=== PATIENT | female | born 1995 | race Caucasian/White ===

== ENCOUNTER 2020-10-30 20:00 | Emergency (ER) | payer OTHER ==
[~2020-10-30] VITALS: Ht 167.6 cm; Wt 81.8 kg
[2020-10-30] MEDS ORDERED: LORazepam 2 MG TABLET PO ONE (20:30)
[2020-10-30 20:39] LABS: APPEARANCE,URINE CLEAR (CLEAR); BILIRUBIN,URINE NEGATIVE (NEGATIVE); GLUCOSE, URINE (UA) NEGATIVE (NEGATIVE); KETONES,URINE 15 mg/dL (NEGATIVE); LEUKOCYTE ESTERASE ,URINE NEGATIVE (NEGATIVE); NITRATE,URINE NEGATIVE (NEGATIVE); OCCULT BLOOD,URINE NEGATIVE (NEGATIVE); PROTEIN,URINE NEGATIVE (NEGATIVE); UROBILINOGEN,URINE 0.2 mg/dL (<=1.0)
[2020-10-30 20:41] LABS: AMPHET/METH SCREEN,URINE NEGATIVE (NEGATIVE); BARBITURATE SCREEN, URINE NEGATIVE (NEGATIVE); BENZODIAZEPINES SCREEN,URINE NEGATIVE (NEGATIVE); CANNABINOID SCREEN,URINE POSITIVE (NEGATIVE); COCAINE SCREEN,URINE NEGATIVE (NEGATIVE); METHADONE SCREEN, URINE NEGATIVE (NEGATIVE); OPIATE SCREEN,URINE NEGATIVE (NEGATIVE)
[2020-10-30 20:42] LABS: BASOPHILS % (AUTO) 0.5 % (0.0-2.0); HEMATOCRIT 39.2 % (36-46); HEMOGLOBIN 13.4 g/dL (12.0-16.0); LYMPHOCYTES # (AUTO) 2.1 K/uL (1.0-4.8); LYMPHOCYTES % (AUTO) 21.2 % (22.0-44.0); MEAN CORPUSCULAR HEMOGLOBIN 31.5 pg (26.0-34.0); MEAN CORPUSCULAR HGB CONC 34.1 G/dL (31.0-37.0); MEAN CORPUSCULAR VOLUME 92 fL (80-100); MONOCYTES # (AUTO) 0.8 K/uL (0.1-1.0); MONOCYTES % (AUTO) 7.9 % (2.0-9.0); NEUTROPHILS # (AUTO) 6.7 K/uL (1.8-7.7); NEUTROPHILS % (AUTO) 68.4 % (40.0-70.0); PLATELET COUNT (AUTO) 415 K/uL (150-450); RED BLOOD CELL COUNT(AUTO) 4.25 MIL/uL (4.00-5.20); RED CELL DISTRIBUTION WIDTH 11.7 % (11.5-14.5)
[2020-10-30 20:42] LABS: PHENCYCLIDINE SCREEN,URINE NEGATIVE (NEGATIVE)
[2020-10-30 20:44] LABS: COVID AG,FIA SOURCE NASOPHARYNGEAL
[2020-10-30 20:45] LABS: BACTERIA,URINE Few /HPF (None Seen); RBC,URINE 0-2 /HPF (0-2); SQUAMOUS EPITHELIAL CELL,UR Moderate /LPF (None Seen)
[2020-10-30] MEDS ORDERED: CEPHALEXIN MONOHYDRATE 500 MG CAPSULE PO ONE (20:45)
[2020-10-30 20:51] LABS: ANION GAP 4 mmol/L (8-16); CALCIUM, TOTAL 8.9 mg/dL (8.8-10.5); CARBON DIOXIDE 29 mmol/L (22-29); CHLORIDE 107 mmol/L (98-107); GLOMERULAR FILTR. RATE CALC > 60 mL/min (>60); GLUCOSE,RANDOM 90 mg/dL (70-110); POTASSIUM 3.4 mmol/L (3.5-5.1); SODIUM SERUM 140 mmol/L (136-145); UREA NITROGEN, BLOOD 11 mg/dL (7-18)
[2020-10-30 21:04] LABS: ALANINE AMINOTRANSFERASE 32 U/L (12-78); ALBUMIN 3.9 g/dL (3.4-5.0); ALKALINE PHOSPHATASE 62 U/L (46-116); ASPARTATE AMINOTRANSFERASE 15 U/L (15-37); BILIRUBIN,TOTAL 0.6 mg/dL (0.1-1.0); HCG,QUANTITATIVE < 1 mIU/mL (0-6); TOTAL PROTEIN, SERUM 7.2 g/dL (6.4-8.2)
[2020-10-30] MEDS ORDERED: POTASSIUM CHLORIDE 10% 40 MEQ/30 ML LIQUID UDCUP PO ONE (21:30)
[2020-10-30 21:42] VITALS: BP 98/59
== END 2020-10-30 23:53 | disposition home or self-care (01) ==
LOC: EMS 20:02
DX: F31.9 Bipolar disorder, unspecified (principal); R45.851 Suicidal ideations; F41.9 Anxiety disorder, unspecified; N39.0 Urinary tract infection, site not specified; E87.6 Hypokalemia; F17.210 Nicotine dependence, cigarettes, uncomplicated; F12.90 Cannabis use, unspecified, uncomplicated; F19.90 Other psychoactive substance use, unspecified, uncomplicated; Z20.822 Contact with and (suspected) exposure to COVID-19
CPT/HCPCS: 36415; 80053; 80307; 81001; 84702; 85025; 87426; 99285; G0480

== ENCOUNTER 2020-11-18 01:01 | Inpatient (IN) | payer MEDICAID, OTHER ==
[~2020-11-18] VITALS: Ht 167.6 cm; Wt 81.2 kg
[2020-11-18] MEDS ORDERED: ZOLPIDEM TARTRATE 10 MG TABLET PO PRN (03:15)
[2020-11-18 03:18] LABS: COVID AG,FIA SOURCE NASOPHARYNGEAL
[2020-11-18 03:26] LABS: BASOPHILS % (AUTO) 0.3 % (0.0-2.0); EOSINOPHILS % (AUTO) 1.3 % (1.0-6.0); HEMATOCRIT 35.8 % (36-46); HEMOGLOBIN 12.1 g/dL (12.0-16.0); LYMPHOCYTES # (AUTO) 1.8 K/uL (1.0-4.8); LYMPHOCYTES % (AUTO) 16.2 % (22.0-44.0); MEAN CORPUSCULAR HEMOGLOBIN 31.1 pg (26.0-34.0); MEAN CORPUSCULAR HGB CONC 33.9 G/dL (31.0-37.0); MEAN CORPUSCULAR VOLUME 92 fL (80-100); MONOCYTES % (AUTO) 8.7 % (2.0-9.0); NEUTROPHILS # (AUTO) 8.3 K/uL (1.8-7.7); NEUTROPHILS % (AUTO) 73.5 % (40.0-70.0); PLATELET COUNT (AUTO) 400 K/uL (150-450); RED BLOOD CELL COUNT(AUTO) 3.89 MIL/uL (4.00-5.20); RED CELL DISTRIBUTION WIDTH 11.8 % (11.5-14.5)
[2020-11-18 03:47] LABS: ALANINE AMINOTRANSFERASE 62 U/L (12-78); ALBUMIN 3.9 g/dL (3.4-5.0); ALKALINE PHOSPHATASE 75 U/L (46-116); ANION GAP 18 mmol/L (8-16); ASPARTATE AMINOTRANSFERASE 102 U/L (15-37); BILIRUBIN,TOTAL 1.1 mg/dL (0.1-1.0); CALCIUM, TOTAL 8.6 mg/dL (8.8-10.5); CARBON DIOXIDE 20 mmol/L (22-29); CHLORIDE 99 mmol/L (98-107); CREATININE 0.68 mg/dL (0.60-1.30); GLOMERULAR FILTR. RATE CALC > 60 mL/min (>60); GLUCOSE,RANDOM 56 mg/dL (70-110); HCG,QUANTITATIVE < 1 mIU/mL (0-6); POTASSIUM 3.1 mmol/L (3.5-5.1); SODIUM SERUM 137 mmol/L (136-145); TOTAL PROTEIN, SERUM 7.2 g/dL (6.4-8.2); UREA NITROGEN, BLOOD 17 mg/dL (7-18)
[2020-11-18] MEDS ORDERED: POTASSIUM CHLORIDE 20 MEQ ER TABLET PO ONE ×2 (04:00→09:45)
[2020-11-18 04:21] LABS: SALICYLATE 3.1 mg/dL (2.8-20.0)
[2020-11-18 04:29] LABS: ACETAMINOPHEN < 2 mcg/mL (10-30)
[2020-11-18] MEDS: LORazepam 2 MG TABLET PO PRN (04:43)
[2020-11-18] MEDS ORDERED: OMEPRAZOLE 20 MG CAPSULE PO PRN (09:45)
[2020-11-18] MEDS ORDERED: DOCUSATE SODIUM 100 MG CAPSULE PO PRN (09:45)
[2020-11-18] MEDS ORDERED: ONDANSETRON HCL 4 MG TABLET PO PRN (09:45)
[2020-11-18] MEDS ORDERED: MAG HYDROX/AL HYDROX/SIMETH ES 30 ML SUSPENSION UDCUP PO PRN (09:45)
[2020-11-18] MEDS ORDERED: ALBUTEROL SULFATE HFA 90 MCG/PUFF 8 GM INHALER IH PRN (09:45)
[2020-11-18] MEDS ORDERED: BENZOCAINE/MENTHOL LOZENGE PO PRN (09:45)
[2020-11-18] MEDS ORDERED: ACETAMINOPHEN 325 MG TABLET PO PRN (09:45)
[2020-11-18] MEDS ORDERED: CloNIDine HCL 0.1 MG TABLET PO PRN (09:45)
[2020-11-18] MEDS ORDERED: LOPERAMIDE HCL 2 MG CAPSULE PO PRN (09:45)
[2020-11-18] MEDS ORDERED: MAGNESIUM HYDROXIDE SUSPENSION 30 ML UDCUP PO PRN (09:45)
[2020-11-18] MEDS ORDERED: BACITRACIN 28 GM OINTMENT TP PRN (09:45)
[2020-11-18] MEDS ORDERED: PETROLATUM,WHITE 28 GM JELLY TP PRN (09:45)
[2020-11-18 10:00] VITALS: BP 129/61
[2020-11-18 16:02] VITALS: BP 130/63
[2020-11-18] MEDS: MIRTAZAPINE 30 MG TABLET PO SCH (20:57)
[2020-11-19 00:57] VITALS: BP 103/62
[2020-11-19 07:40] LABS: BASOPHILS % (AUTO) 0.5 % (0.0-2.0); EOSINOPHILS % (AUTO) 3.4 % (1.0-6.0); HEMATOCRIT 40.2 % (36-46); HEMOGLOBIN 13.5 g/dL (12.0-16.0); LYMPHOCYTES # (AUTO) 1.3 K/uL (1.0-4.8); LYMPHOCYTES % (AUTO) 21.3 % (22.0-44.0); MEAN CORPUSCULAR HEMOGLOBIN 31.2 pg (26.0-34.0); MEAN CORPUSCULAR HGB CONC 33.5 G/dL (31.0-37.0); MEAN CORPUSCULAR VOLUME 93 fL (80-100); MONOCYTES # (AUTO) 0.6 K/uL (0.1-1.0); MONOCYTES % (AUTO) 9.6 % (2.0-9.0); NEUTROPHILS # (AUTO) 3.9 K/uL (1.8-7.7); NEUTROPHILS % (AUTO) 65.2 % (40.0-70.0); PLATELET COUNT (AUTO) 416 K/uL (150-450); RED BLOOD CELL COUNT(AUTO) 4.31 MIL/uL (4.00-5.20); RED CELL DISTRIBUTION WIDTH 11.7 % (11.5-14.5)
[2020-11-19 08:17] VITALS: BP 109/82
[2020-11-19 08:22] LABS: ALANINE AMINOTRANSFERASE 52 U/L (12-78); ALBUMIN 3.2 g/dL (3.4-5.0); ALKALINE PHOSPHATASE 64 U/L (46-116); ANION GAP 8 mmol/L (8-16); ASPARTATE AMINOTRANSFERASE 42 U/L (15-37); BILIRUBIN,TOTAL 0.4 mg/dL (0.1-1.0); CALCIUM, TOTAL 8.4 mg/dL (8.8-10.5); CARBON DIOXIDE 23 mmol/L (22-29); CHLORIDE 107 mmol/L (98-107); CHOL/HDL RATIO 3.6 (3.9-5.7); CHOLESTEROL 135 mg/dL (131-200); CREATININE 0.59 mg/dL (0.60-1.30); GLOMERULAR FILTR. RATE CALC > 60 mL/min (>60); GLUCOSE,RANDOM 83 mg/dL (70-110); HDL CHOLESTEROL 38 mg/dL (40-60); LDL CHOL (CALC.) 83 mg/dL (0-130); PHOSPHORUS 2.6 mg/dL (2.5-4.9); POTASSIUM 3.7 mmol/L (3.5-5.1); SODIUM SERUM 138 mmol/L (136-145); TOTAL PROTEIN, SERUM 6.6 g/dL (6.4-8.2); TRIGLYCERIDES 72 mg/dL (15-150); UREA NITROGEN, BLOOD 8 mg/dL (7-18)
[2020-11-19] MEDS: LORazepam 2 MG TABLET PO PRN ×2 (08:50→19:18)
[2020-11-19] MEDS: IBUPROFEN 600 MG TABLET PO PRN (10:40)
[2020-11-19 16:08] VITALS: BP 98/66
[2020-11-19] MEDS: MIRTAZAPINE 30 MG TABLET PO SCH (20:29)
[2020-11-20 00:17] VITALS: BP 99/68
[2020-11-20 08:05] VITALS: BP 120/69
[2020-11-20] MEDS: LORazepam 2 MG TABLET PO PRN (13:11)
[2020-11-20] MEDS: IBUPROFEN 600 MG TABLET PO PRN ×2 (14:26→20:26)
[2020-11-20 16:09] VITALS: BP 105/62
[2020-11-20] MEDS: MIRTAZAPINE 30 MG TABLET PO SCH (20:19)
[2020-11-20 20:26] VITALS: BP 110/65
[2020-11-21 00:15] VITALS: BP 115/63
[2020-11-21 08:05] VITALS: BP 122/76
[2020-11-21] MEDS: IBUPROFEN 600 MG TABLET PO PRN (08:27)
[2020-11-21] MEDS: LORazepam 2 MG TABLET PO PRN ×2 (08:27→13:18)
[2020-11-21 16:02] VITALS: BP 100/61
[2020-11-21] MEDS: MIRTAZAPINE 30 MG TABLET PO SCH (20:26)
[2020-11-22 00:15] VITALS: BP 113/70
[2020-11-22] MEDS: HALOPERIDOL 5 MG TABLET PO PRN (03:25)
[2020-11-22 08:05] VITALS: BP 105/65
[2020-11-22] MEDS: LORazepam 2 MG TABLET PO PRN (08:47)
[2020-11-22] MEDS: HydrOXYzine PAMOATE 50 MG CAPSULE PO PRN (13:02)
[2020-11-22 16:04] VITALS: BP 108/67
[2020-11-22] MEDS: MIRTAZAPINE 30 MG TABLET PO SCH (20:05)
[2020-11-23 00:42] VITALS: BP 111/75
[2020-11-23] MEDS: HydrOXYzine PAMOATE 50 MG CAPSULE PO PRN ×2 (07:45→12:00)
[2020-11-23 08:05] VITALS: BP 113/71
[2020-11-23] MEDS: HALOPERIDOL 5 MG TABLET PO PRN (10:05)
[2020-11-23] MEDS: IBUPROFEN 600 MG TABLET PO PRN (12:00)
[2020-11-23] MEDS: LORazepam 2 MG TABLET PO PRN (15:34)
[2020-11-23 16:02] VITALS: BP 104/69
[2020-11-23] MEDS: MIRTAZAPINE 30 MG TABLET PO SCH (20:07)
[2020-11-24 00:56] VITALS: BP 103/62
[2020-11-24 08:51] VITALS: BP 110/68
[2020-11-24] MEDS: HydrOXYzine PAMOATE 50 MG CAPSULE PO PRN ×2 (08:54→17:08)
[2020-11-24 12:48] LABS: GLUCOMETER DEV NAME(LOC) POC.BV
[2020-11-24] MEDS: LORazepam 2 MG TABLET PO PRN ×2 (13:27→20:11)
[2020-11-24 16:20] VITALS: BP 119/77
[2020-11-24] MEDS: MIRTAZAPINE 30 MG TABLET PO SCH (20:11)
[2020-11-25 06:04] VITALS: BP 132/66
[2020-11-25 08:14] VITALS: BP 115/84
[2020-11-25] MEDS: LORazepam 2 MG TABLET PO PRN (08:45)
[2020-11-25] MEDS: IBUPROFEN 600 MG TABLET PO PRN (08:49)
[2020-11-25] MEDS ORDERED: MIRT30 PO (11:41)
== END 2020-11-25 15:30 | disposition home or self-care (01) | DRG 753 ==
LOC: EMS 01:02 → B2S 08:16
PROVIDERS: ADMIT Psychiatry & Neurology Psychiatry; ATTEND Psychiatry & Neurology Psychiatry
DX: F31.9 Bipolar disorder, unspecified (principal); E87.6 Hypokalemia; F20.9 Schizophrenia, unspecified; F15.10 Other stimulant abuse, uncomplicated; F41.9 Anxiety disorder, unspecified; G47.00 Insomnia, unspecified; K59.00 Constipation, unspecified; F12.90 Cannabis use, unspecified, uncomplicated; F17.210 Nicotine dependence, cigarettes, uncomplicated; Z20.822 Contact with and (suspected) exposure to COVID-19; Z59.0 Homelessness; Z71.6 Tobacco abuse counseling; Z72.89 Other problems related to lifestyle
CPT/HCPCS: 80053; 80061; 83735; 84100; 84702; 85025; 99285; G0480; G0481; Q0162

== ENCOUNTER 2020-11-30 02:14 | Emergency (ER) | payer MEDICAID, OTHER ==
[~2020-11-30] VITALS: Ht 167.6 cm; Wt 76.4 kg
[~2020-11-30 02:14] MED LIST: MIRT30 PO
[2020-11-30] MEDS ORDERED: HALOPERIDOL 5 MG TABLET PO PRN (04:00)
[2020-11-30] MEDS ORDERED: ZOLPIDEM TARTRATE 10 MG TABLET PO PRN (04:00)
[2020-11-30] MEDS ORDERED: LORazepam 2 MG TABLET PO PRN (04:00)
[2020-11-30 07:19] LABS: BASOPHILS % (AUTO) 0.8 % (0.0-2.0); EOSINOPHILS % (AUTO) 3.3 % (1.0-6.0); HEMOGLOBIN 13.7 g/dL (12.0-16.0); LYMPHOCYTES # (AUTO) 1.5 K/uL (1.0-4.8); LYMPHOCYTES % (AUTO) 18.2 % (22.0-44.0); MEAN CORPUSCULAR HEMOGLOBIN 31.1 pg (26.0-34.0); MEAN CORPUSCULAR HGB CONC 34.3 G/dL (31.0-37.0); MEAN CORPUSCULAR VOLUME 91 fL (80-100); MONOCYTES # (AUTO) 0.9 K/uL (0.1-1.0); MONOCYTES % (AUTO) 11.2 % (2.0-9.0); NEUTROPHILS # (AUTO) 5.5 K/uL (1.8-7.7); NEUTROPHILS % (AUTO) 66.5 % (40.0-70.0); PLATELET COUNT (AUTO) 365 K/uL (150-450); RED BLOOD CELL COUNT(AUTO) 4.41 MIL/uL (4.00-5.20); RED CELL DISTRIBUTION WIDTH 11.8 % (11.5-14.5)
[2020-11-30 07:27] LABS: ANION GAP 6 mmol/L (8-16); CALCIUM, TOTAL 8.9 mg/dL (8.8-10.5); CARBON DIOXIDE 29 mmol/L (22-29); CHLORIDE 106 mmol/L (98-107); CREATININE 0.55 mg/dL (0.60-1.30); GLOMERULAR FILTR. RATE CALC > 60 mL/min (>60); GLUCOSE,RANDOM 92 mg/dL (70-110); POTASSIUM 4.1 mmol/L (3.5-5.1); SODIUM SERUM 141 mmol/L (136-145); UREA NITROGEN, BLOOD 6 mg/dL (7-18)
[2020-11-30 07:35] LABS: ALANINE AMINOTRANSFERASE 85 U/L (12-78); ALBUMIN 3.6 g/dL (3.4-5.0); ALKALINE PHOSPHATASE 83 U/L (46-116); ASPARTATE AMINOTRANSFERASE 32 U/L (15-37); BILIRUBIN,TOTAL 0.3 mg/dL (0.1-1.0); TOTAL PROTEIN, SERUM 6.9 g/dL (6.4-8.2)
[2020-11-30 10:16] VITALS: BP 105/61
[2020-11-30] MEDS ORDERED: NICOTINE 21 MG/24 HOUR PATCH TD ONE (12:15)
== END 2020-11-30 13:25 | disposition home or self-care (01) ==
LOC: EMS 02:15
DX: F31.9 Bipolar disorder, unspecified (principal); F12.90 Cannabis use, unspecified, uncomplicated; F15.90 Other stimulant use, unspecified, uncomplicated; F17.210 Nicotine dependence, cigarettes, uncomplicated; Z79.899 Other long term (current) drug therapy
CPT/HCPCS: 36415; 80053; 84703; 85025; 99284; G0480

== ENCOUNTER 2020-11-30 19:24 | Inpatient (IN) | payer MEDICAID, OTHER ==
[~2020-11-30] VITALS: Ht 167.6 cm; Wt 76.6 kg
[2020-11-30 20:42] LABS: AMPHET/METH SCREEN,URINE NEGATIVE (NEGATIVE); BARBITURATE SCREEN, URINE NEGATIVE (NEGATIVE); BENZODIAZEPINES SCREEN,URINE NEGATIVE (NEGATIVE); CANNABINOID SCREEN,URINE POSITIVE (NEGATIVE); COCAINE SCREEN,URINE NEGATIVE (NEGATIVE); METHADONE SCREEN, URINE NEGATIVE (NEGATIVE); OPIATE SCREEN,URINE NEGATIVE (NEGATIVE)
[2020-11-30 20:43] LABS: PHENCYCLIDINE SCREEN,URINE NEGATIVE (NEGATIVE)
[2020-11-30 21:19] LABS: COVID AG,FIA SOURCE NASOPHARYNGEAL
[2020-12-01 04:29] LABS: APPEARANCE,URINE CLEAR (CLEAR); BILIRUBIN,URINE NEGATIVE (NEGATIVE); GLUCOSE, URINE (UA) NEGATIVE (NEGATIVE); KETONES,URINE NEGATIVE (NEGATIVE); LEUKOCYTE ESTERASE ,URINE TRACE (NEGATIVE); NITRATE,URINE NEGATIVE (NEGATIVE); OCCULT BLOOD,URINE NEGATIVE (NEGATIVE); PROTEIN,URINE NEGATIVE (NEGATIVE); UROBILINOGEN,URINE 0.2 mg/dL (<=1.0)
[2020-12-01 05:00] LABS: RBC,URINE None Seen /HPF (0-2); WBC,URINE 0-2 /HPF (0-5)
[2020-12-01 05:01] LABS: BACTERIA,URINE Rare /HPF (None Seen); SQUAMOUS EPITHELIAL CELL,UR Rare /LPF (None Seen); YEAST,URINE Rare /HPF (None Seen)
[2020-12-01 07:28] LABS: BASOPHILS % (AUTO) 1.1 % (0.0-2.0); EOSINOPHILS % (AUTO) 3.8 % (1.0-6.0); HEMATOCRIT 39.8 % (36-46); HEMOGLOBIN 13.7 g/dL (12.0-16.0); LYMPHOCYTES # (AUTO) 1.3 K/uL (1.0-4.8); LYMPHOCYTES % (AUTO) 20.7 % (22.0-44.0); MEAN CORPUSCULAR HGB CONC 34.4 G/dL (31.0-37.0); MEAN CORPUSCULAR VOLUME 90 fL (80-100); MONOCYTES # (AUTO) 0.8 K/uL (0.1-1.0); MONOCYTES % (AUTO) 12.4 % (2.0-9.0); NEUTROPHILS # (AUTO) 3.9 K/uL (1.8-7.7); PLATELET COUNT (AUTO) 380 K/uL (150-450); RED BLOOD CELL COUNT(AUTO) 4.42 MIL/uL (4.00-5.20); RED CELL DISTRIBUTION WIDTH 11.7 % (11.5-14.5)
[2020-12-01] MEDS: LORazepam 2 MG TABLET PO PRN ×2 (07:38→14:20)
[2020-12-01 07:41] LABS: ANION GAP 6 mmol/L (8-16); CALCIUM, TOTAL 8.5 mg/dL (8.8-10.5); CARBON DIOXIDE 28 mmol/L (22-29); CHLORIDE 106 mmol/L (98-107); CREATININE 0.67 mg/dL (0.60-1.30); GLOMERULAR FILTR. RATE CALC > 60 mL/min (>60); GLUCOSE,RANDOM 88 mg/dL (70-110); POTASSIUM 3.9 mmol/L (3.5-5.1); SODIUM SERUM 140 mmol/L (136-145); UREA NITROGEN, BLOOD 9 mg/dL (7-18)
[2020-12-01 07:45] LABS: ALANINE AMINOTRANSFERASE 70 U/L (12-78); ALBUMIN 3.5 g/dL (3.4-5.0); ALKALINE PHOSPHATASE 85 U/L (46-116); ASPARTATE AMINOTRANSFERASE 27 U/L (15-37); BILIRUBIN,TOTAL 0.4 mg/dL (0.1-1.0); CHOL/HDL RATIO 5.8 (3.9-5.7); CHOLESTEROL 180 mg/dL (131-200); HDL CHOLESTEROL 31 mg/dL (40-60); LDL CHOL (CALC.) 122 mg/dL (0-130); TOTAL PROTEIN, SERUM 6.8 g/dL (6.4-8.2); TRIGLYCERIDES 136 mg/dL (15-150)
[2020-12-01 13:23] VITALS: BP 103/77
[2020-12-01] MEDS: HALOPERIDOL 5 MG TABLET PO PRN (15:10)
[2020-12-01] MEDS ORDERED: NICOTINE 21 MG/24 HOUR PATCH TD ONE (16:15)
[2020-12-01 16:52] VITALS: BP 108/75
[2020-12-02] MEDS: HALOPERIDOL 5 MG TABLET PO PRN ×4 (06:16→21:54)
[2020-12-02] MEDS: DIVALPROEX SODIUM 500 MG DR TABLET PO SCH ×2 (08:15→17:47)
[2020-12-02] MEDS: LORazepam 2 MG TABLET PO PRN ×4 (08:15→21:54)
[2020-12-02] MEDS: NICOTINE 21 MG/24 HOUR PATCH TD SCH (08:16)
[2020-12-02 09:36] VITALS: BP 133/82
[2020-12-02] MEDS ORDERED: DOCUSATE SODIUM 100 MG CAPSULE PO PRN (12:30)
[2020-12-02] MEDS ORDERED: ALBUTEROL SULFATE HFA 90 MCG/PUFF 8 GM INHALER IH PRN (12:30)
[2020-12-02] MEDS ORDERED: BENZOCAINE/MENTHOL LOZENGE PO PRN (12:30)
[2020-12-02] MEDS ORDERED: MAGNESIUM HYDROXIDE SUSPENSION 30 ML UDCUP PO PRN (12:30)
[2020-12-02] MEDS ORDERED: CloNIDine HCL 0.1 MG TABLET PO PRN (12:30)
[2020-12-02] MEDS ORDERED: PETROLATUM,WHITE 28 GM JELLY TP PRN (12:30)
[2020-12-02] MEDS ORDERED: MAG HYDROX/AL HYDROX/SIMETH ES 30 ML SUSPENSION UDCUP PO PRN (12:30)
[2020-12-02] MEDS ORDERED: ONDANSETRON HCL 4 MG TABLET PO PRN (12:30)
[2020-12-02] MEDS ORDERED: LOPERAMIDE HCL 2 MG CAPSULE PO PRN (12:30)
[2020-12-02] MEDS ORDERED: BACITRACIN 28 GM OINTMENT TP PRN (12:30)
[2020-12-02] MEDS ORDERED: OMEPRAZOLE 20 MG CAPSULE PO PRN (12:30)
[2020-12-02 16:49] VITALS: BP 123/85
[2020-12-02] MEDS: MIRTAZAPINE 30 MG TABLET PO SCH (20:19)
[2020-12-03] MEDS: HydrOXYzine PAMOATE 25 MG CAPSULE PO SCH ×3 (07:57→16:19)
[2020-12-03 08:00] VITALS: BP 105/73
[2020-12-03] MEDS: NICOTINE 21 MG/24 HOUR PATCH TD SCH (08:01)
[2020-12-03] MEDS: DIVALPROEX SODIUM 500 MG DR TABLET PO SCH ×2 (08:07→16:19)
[2020-12-03] MEDS ORDERED: DIVALPROEX SODIUM 250 MG DR TABLET PO SCH (09:00)
[2020-12-03 16:15] VITALS: BP 146/93
[2020-12-03] MEDS: HALOPERIDOL 5 MG TABLET PO PRN (17:02)
[2020-12-03] MEDS: MIRTAZAPINE 30 MG TABLET PO SCH (20:15)
[2020-12-04] MEDS: HydrOXYzine PAMOATE 25 MG CAPSULE PO SCH ×3 (08:55→16:51)
[2020-12-04] MEDS: DIVALPROEX SODIUM 500 MG DR TABLET PO SCH ×2 (08:55→16:51)
[2020-12-04] MEDS: NICOTINE 21 MG/24 HOUR PATCH TD SCH (08:56)
[2020-12-04 08:59] VITALS: BP 131/101
[2020-12-04] MEDS: ACETAMINOPHEN 325 MG TABLET PO PRN (08:59)
[2020-12-04 09:59] VITALS: BP 110/70
[2020-12-04 12:54] VITALS: BP 131/101
[2020-12-04 17:14] VITALS: BP 104/69
[2020-12-04] MEDS: MIRTAZAPINE 30 MG TABLET PO SCH (20:47)
[2020-12-05 08:32] VITALS: BP 134/92
[2020-12-05] MEDS: NICOTINE 21 MG/24 HOUR PATCH TD SCH (09:11)
[2020-12-05] MEDS: HydrOXYzine PAMOATE 25 MG CAPSULE PO SCH ×3 (09:11→16:45)
[2020-12-05] MEDS: DIVALPROEX SODIUM 500 MG DR TABLET PO SCH ×2 (09:11→16:45)
[2020-12-05 16:35] VITALS: BP 139/93
[2020-12-05] MEDS: MIRTAZAPINE 30 MG TABLET PO SCH (20:17)
[2020-12-06] MEDS: HALOPERIDOL 5 MG TABLET PO PRN ×2 (06:15→18:55)
[2020-12-06] MEDS: DIVALPROEX SODIUM 500 MG DR TABLET PO SCH ×2 (08:26→16:54)
[2020-12-06] MEDS: HydrOXYzine PAMOATE 25 MG CAPSULE PO SCH ×3 (08:26→16:54)
[2020-12-06] MEDS: NICOTINE 21 MG/24 HOUR PATCH TD SCH (08:27)
[2020-12-06 08:38] VITALS: BP 138/88
[2020-12-06 10:13] LABS: COVID AG,FIA SOURCE NASAL SWAB
[2020-12-06 11:40] VITALS: BP 140/86
[2020-12-06] MEDS: IBUPROFEN 600 MG TABLET PO PRN (11:50)
[2020-12-06 16:18] VITALS: BP 111/76
[2020-12-06] MEDS: ZOLPIDEM TARTRATE 10 MG TABLET PO PRN (20:12)
[2020-12-06] MEDS: MIRTAZAPINE 30 MG TABLET PO SCH (20:39)
[2020-12-07 08:43] VITALS: BP 111/60
[2020-12-07] MEDS: HydrOXYzine PAMOATE 25 MG CAPSULE PO SCH ×3 (09:04→17:14)
[2020-12-07] MEDS: DIVALPROEX SODIUM 500 MG DR TABLET PO SCH ×2 (09:04→17:15)
[2020-12-07] MEDS: IBUPROFEN 600 MG TABLET PO PRN (09:04)
[2020-12-07] MEDS: NICOTINE 21 MG/24 HOUR PATCH TD SCH (09:14)
[2020-12-07 16:31] VITALS: BP 124/66
[2020-12-07] MEDS: ACETAMINOPHEN 325 MG TABLET PO PRN (18:06)
[2020-12-07 18:07] VITALS: BP 122/70
[2020-12-07] MEDS: HALOPERIDOL 5 MG TABLET PO PRN (18:38)
[2020-12-07] MEDS ORDERED: ChlorproMAZINE HCL 50 MG/2 ML AMP ONE (19:07)
[2020-12-07] MEDS ORDERED: ChlorproMAZINE HCL 50 MG/2 ML AMP IM ONE (19:15)
[2020-12-07] MEDS: ZOLPIDEM TARTRATE 10 MG TABLET PO PRN ×2 (20:30→22:00)
[2020-12-07] MEDS: MIRTAZAPINE 30 MG TABLET PO SCH (21:59)
[2020-12-08 08:00] VITALS: BP 124/81
[2020-12-08] MEDS: DIVALPROEX SODIUM 500 MG DR TABLET PO SCH ×3 (08:38→17:00)
[2020-12-08] MEDS: HydrOXYzine PAMOATE 25 MG CAPSULE PO SCH ×4 (08:38→17:00)
[2020-12-08] MEDS: NICOTINE 21 MG/24 HOUR PATCH TD SCH (08:39)
[2020-12-08] MEDS ORDERED: ChlorproMAZINE HCL 50 MG/2 ML AMP IM ONE (16:15)
[2020-12-08 17:19] VITALS: BP 101/68
[2020-12-08] MEDS: MIRTAZAPINE 30 MG TABLET PO SCH (20:02)
[2020-12-09] VITALS (7 sets, daily range): BP systolic 100–114; BP diastolic 66–69
[2020-12-09] MEDS: ZOLPIDEM TARTRATE 10 MG TABLET PO PRN ×2 (01:27→21:01)
[2020-12-09] MEDS: DIVALPROEX SODIUM 500 MG DR TABLET PO SCH ×2 (09:00→16:57)
[2020-12-09] MEDS: NICOTINE 21 MG/24 HOUR PATCH TD SCH (09:00)
[2020-12-09] MEDS: HydrOXYzine PAMOATE 25 MG CAPSULE PO SCH ×3 (09:32→16:57)
[2020-12-09] MEDS: ChlorproMAZINE HCL 100 MG TABLET PO SCH ×3 (09:32→16:57)
[2020-12-09] MEDS: ACETAMINOPHEN 325 MG TABLET PO PRN (16:29)
[2020-12-09] MEDS: IBUPROFEN 600 MG TABLET PO PRN (19:00)
[2020-12-09] MEDS: HALOPERIDOL 5 MG TABLET PO PRN (19:00)
[2020-12-09] MEDS: MIRTAZAPINE 30 MG TABLET PO SCH (21:01)
[2020-12-10 08:13] VITALS: BP 140/88
[2020-12-10 08:15] VITALS: BP 127/72
[2020-12-10] MEDS: HydrOXYzine PAMOATE 25 MG CAPSULE PO SCH ×3 (08:32→16:16)
[2020-12-10] MEDS: ChlorproMAZINE HCL 100 MG TABLET PO SCH ×3 (08:33→16:16)
[2020-12-10] MEDS: NICOTINE 21 MG/24 HOUR PATCH TD SCH (08:33)
[2020-12-10] MEDS: DIVALPROEX SODIUM 500 MG DR TABLET PO SCH ×3 (09:00→16:16)
[2020-12-10 16:00] VITALS: BP 116/78
[2020-12-10] MEDS: MIRTAZAPINE 30 MG TABLET PO SCH (20:20)
[2020-12-10] MEDS: ZOLPIDEM TARTRATE 10 MG TABLET PO PRN (21:08)
[2020-12-10] MEDS: ACETAMINOPHEN 325 MG TABLET PO PRN (21:09)
[2020-12-11 08:02] VITALS: BP 108/92
[2020-12-11] MEDS: NICOTINE 21 MG/24 HOUR PATCH TD SCH (08:05)
[2020-12-11] MEDS: DIVALPROEX SODIUM 500 MG DR TABLET PO SCH ×3 (08:05→16:31)
[2020-12-11] MEDS: HydrOXYzine PAMOATE 25 MG CAPSULE PO SCH ×3 (08:05→16:31)
[2020-12-11] MEDS: ChlorproMAZINE HCL 100 MG TABLET PO SCH ×3 (08:06→16:31)
[2020-12-11 12:43] VITALS: BP 107/72
[2020-12-11] MEDS: ACETAMINOPHEN 325 MG TABLET PO PRN (12:43)
[2020-12-11] MEDS: HALOPERIDOL 5 MG TABLET PO PRN (15:03)
[2020-12-11 16:55] VITALS: BP 131/83
[2020-12-11] MEDS: MIRTAZAPINE 30 MG TABLET PO SCH (20:31)
[2020-12-11] MEDS: ZOLPIDEM TARTRATE 10 MG TABLET PO PRN (20:31)
[2020-12-12 08:12] VITALS: BP 134/90
[2020-12-12] MEDS: HydrOXYzine PAMOATE 25 MG CAPSULE PO SCH ×3 (08:23→16:07)
[2020-12-12] MEDS: NICOTINE 21 MG/24 HOUR PATCH TD SCH (08:23)
[2020-12-12] MEDS: ChlorproMAZINE HCL 100 MG TABLET PO SCH ×3 (08:23→16:07)
[2020-12-12] MEDS: DIVALPROEX SODIUM 500 MG DR TABLET PO SCH ×2 (08:26→17:00)
[2020-12-12 09:54] VITALS: BP 142/90
[2020-12-12] MEDS: IBUPROFEN 600 MG TABLET PO PRN ×2 (09:54→17:35)
[2020-12-12] MEDS: HALOPERIDOL 5 MG TABLET PO PRN (12:15)
[2020-12-12 16:25] VITALS: BP 107/72
[2020-12-12] MEDS: MIRTAZAPINE 30 MG TABLET PO SCH (20:16)
[2020-12-12] MEDS: ZOLPIDEM TARTRATE 10 MG TABLET PO PRN (22:34)
[2020-12-13] MEDS: DIVALPROEX SODIUM 500 MG DR TABLET PO SCH ×3 (08:43→16:46)
[2020-12-13] MEDS: HydrOXYzine PAMOATE 25 MG CAPSULE PO SCH ×3 (08:43→16:42)
[2020-12-13] MEDS: ChlorproMAZINE HCL 100 MG TABLET PO SCH ×3 (08:44→16:42)
[2020-12-13] MEDS: NICOTINE 21 MG/24 HOUR PATCH TD SCH (08:45)
[2020-12-13 09:29] VITALS: BP 107/75
[2020-12-13] MEDS: IBUPROFEN 600 MG TABLET PO PRN (10:01)
[2020-12-13 10:03] VITALS: BP 107/75
[2020-12-13 11:03] VITALS: BP 100/68
[2020-12-13 15:01] LABS: COVID AG,FIA SOURCE NASOPHARYNGEAL
[2020-12-13 18:41] VITALS: BP 108/67
[2020-12-13] MEDS: MIRTAZAPINE 30 MG TABLET PO SCH (20:17)
[2020-12-14] MEDS: ZOLPIDEM TARTRATE 10 MG TABLET PO PRN ×2 (00:20→20:43)
[2020-12-14 00:25] VITALS: BP 117/80
[2020-12-14 08:00] VITALS: BP 106/68
[2020-12-14] MEDS: HydrOXYzine PAMOATE 25 MG CAPSULE PO SCH ×3 (08:46→16:50)
[2020-12-14] MEDS: ChlorproMAZINE HCL 100 MG TABLET PO SCH ×3 (08:46→16:50)
[2020-12-14] MEDS: NICOTINE 21 MG/24 HOUR PATCH TD SCH (08:48)
[2020-12-14] MEDS: DIVALPROEX SODIUM 500 MG DR TABLET PO SCH ×2 (09:00→16:50)
[2020-12-14 16:30] VITALS: BP 100/68
[2020-12-14 17:39] VITALS: BP 115/72
[2020-12-14] MEDS: IBUPROFEN 600 MG TABLET PO PRN (17:39)
[2020-12-14] MEDS: MIRTAZAPINE 30 MG TABLET PO SCH (20:43)
[2020-12-15] MEDS: HydrOXYzine PAMOATE 25 MG CAPSULE PO SCH ×3 (08:43→16:16)
[2020-12-15] MEDS: DIVALPROEX SODIUM 500 MG DR TABLET PO SCH ×3 (08:43→17:00)
[2020-12-15] MEDS: ChlorproMAZINE HCL 100 MG TABLET PO SCH ×3 (08:43→16:16)
[2020-12-15] MEDS: NICOTINE 21 MG/24 HOUR PATCH TD SCH (08:47)
[2020-12-15 08:52] VITALS: BP 96/65
[2020-12-15 16:47] VITALS: BP 100/53
[2020-12-15] MEDS: IBUPROFEN 600 MG TABLET PO PRN (19:04)
[2020-12-15] MEDS: MIRTAZAPINE 30 MG TABLET PO SCH (20:45)
[2020-12-15] MEDS: ZOLPIDEM TARTRATE 10 MG TABLET PO PRN (20:46)
[2020-12-16 08:17] VITALS: BP 125/85
[2020-12-16] MEDS: HydrOXYzine PAMOATE 25 MG CAPSULE PO SCH ×3 (08:38→17:38)
[2020-12-16] MEDS: ChlorproMAZINE HCL 100 MG TABLET PO SCH ×3 (08:39→17:38)
[2020-12-16] MEDS: NICOTINE 21 MG/24 HOUR PATCH TD SCH (08:40)
[2020-12-16] MEDS: DIVALPROEX SODIUM 500 MG DR TABLET PO SCH ×2 (09:00→17:00)
[2020-12-16 11:17] LABS: APPEARANCE,URINE CLOUDY (CLEAR); BILIRUBIN,URINE NEGATIVE (NEGATIVE); GLUCOSE, URINE (UA) NEGATIVE (NEGATIVE); KETONES,URINE NEGATIVE (NEGATIVE); LEUKOCYTE ESTERASE ,URINE SMALL (NEGATIVE); NITRATE,URINE NEGATIVE (NEGATIVE); OCCULT BLOOD,URINE NEGATIVE (NEGATIVE); PH,URINE 6.5 (5.0-8.0); PROTEIN,URINE NEGATIVE (NEGATIVE); UROBILINOGEN,URINE 0.2 mg/dL (<=1.0)
[2020-12-16 11:36] LABS: RBC,URINE None Seen /HPF (0-2)
[2020-12-16 11:37] LABS: BACTERIA,URINE Few /HPF (None Seen); SQUAMOUS EPITHELIAL CELL,UR Moderate /LPF (None Seen)
[2020-12-16 16:19] VITALS: BP 123/71
[2020-12-16] MEDS: MIRTAZAPINE 30 MG TABLET PO SCH (21:39)
[2020-12-16] MEDS: ZOLPIDEM TARTRATE 10 MG TABLET PO PRN (21:40)
[2020-12-17] MEDS: HydrOXYzine PAMOATE 25 MG CAPSULE PO SCH ×3 (08:13→15:47)
[2020-12-17] MEDS: ChlorproMAZINE HCL 100 MG TABLET PO SCH ×3 (08:13→15:47)
[2020-12-17] MEDS: NICOTINE 21 MG/24 HOUR PATCH TD SCH (08:15)
[2020-12-17] MEDS: DIVALPROEX SODIUM 500 MG DR TABLET PO SCH (08:30)
[2020-12-17 08:48] VITALS: BP 134/88
[2020-12-17] MEDS ORDERED: CHLO100T31 PO (12:00)
[2020-12-17] MEDS ORDERED: HYDR-4031 PO (12:03)
== END 2020-12-17 15:30 | disposition home or self-care (01) | DRG 753 ==
LOC: EMS 19:28 → 3EI 12-01 09:32
PROVIDERS: ADMIT Psychiatry & Neurology Psychiatry; ATTEND Psychiatry & Neurology Psychiatry
DX: F31.9 Bipolar disorder, unspecified (principal); F12.90 Cannabis use, unspecified, uncomplicated; F17.210 Nicotine dependence, cigarettes, uncomplicated; F15.90 Other stimulant use, unspecified, uncomplicated; Z20.822 Contact with and (suspected) exposure to COVID-19; F41.9 Anxiety disorder, unspecified; G47.00 Insomnia, unspecified; F20.9 Schizophrenia, unspecified; K59.00 Constipation, unspecified; Z71.6 Tobacco abuse counseling; Z71.51 Drug abuse counseling and surveillance of drug abuser
CPT/HCPCS: 80053; 80061; 80164; 81001; 84703; 85025; 87081; 99285; J3230